=== PATIENT | male | born 1930 | race Caucasian/White ===

== ENCOUNTER 2019-11-28 13:58 | Inpatient (IN) | payer MEDICARE ==
[~2019-11-28] VITALS: Ht 182.9 cm; Wt 90.1 kg
[~2019-11-28 13:58] MED LIST: ASPI81CH PO; UBID10 PO
[2019-11-28] MEDS ORDERED: VITAMIN D31000 UNI1 PO (14:29)
[2019-11-28 14:53] LABS: BASOPHILS ABSOLUTE AUTO 0.02 K/mm3 (0.00-0.23); BASOPHILS PERCENT AUTO 0 % (0-2); EOSINOPHILS ABSOLUTE AUTO 0.01 K/mm3 (0.00-0.68); EOSINOPHILS PERCENT AUTO 0 % (0-6); Hematocrit 48.2 % (37.0-53.0); Hemoglobin 16.2 g/dL (13.5-17.5); IMMATURE GRAN ABSOLUTE AUTO 0.05 K/mm3 (0.00-0.10); IMMATURE GRAN PERCENT AUTO 1 % (0-1); LYMPHOCYTES ABSOLUTE AUTO 1.11 K/mm3 (0.84-5.20); LYMPHOCYTES PERCENT AUTO 10 % (21-46); MONOCYTES ABSOLUTE AUTO 1.03 K/mm3 (0.16-1.47); MONOCYTES PERCENT AUTO 10 % (4-13); Mean Corpuscular HGB 32.5 pg (26.0-34.0); Mean Corpuscular HGB Conc 33.6 g/dL (31.5-36.5); Mean Corpuscular Volume 97 fL (80-100); Mean Platelet Volume 10.3 fL (9.1-12.4); NEUTROPHILS ABSOLUTE AUTO 8.47 K/mm3 (1.96-9.15); NEUTROPHILS PERCENT AUTO 79 % (41-73); Platelet Count 223 K/mm3 (150-400); RDW Coefficient Variation 12.6 % (11.7-14.2); RDW Standard Deviation 45.1 fL (35.1-46.3); Red Blood Cell Count 4.98 M/mm3 (4.30-5.90); White Blood Cell Count 10.69 K/mm3 (4.00-11.30)
[2019-11-28 15:13] LABS: Alanine Aminotransfer (ALT/SGP 59 U/L (12-78); Albumin, Blood 3.1 g/dL (3.4-5.0); Albumin/Globulin Ratio 0.7 (0.8-1.8); Alk Phos 77 U/L (50-136); Anion Gap 9 mmol/L (6-16); Aspartate Aminotrans (AST/SGOT 159 U/L (12-37); Bilirubin, Total 1.4 mg/dL (0.1-1.0); Blood Urea Nitrogen 35 mg/dL (8-24); Bun/Creatinine Ratio 47.2 (12.0-20.0); CO2, Blood 23 mmol/L (21-32); Calcium, Blood 8.8 mg/dL (8.5-10.1); Chloride, Blood 110 mmol/L (98-108); Creatinine, Blood 0.74 mg/dL (0.60-1.20); Globulin, Blood 4.7 g/dL (2.2-4.0); Glomerular Filtration Rate >60 (60-); Glucose, Blood 136 mg/dL (70-99); Potassium, Blood 4.1 mmol/L (3.5-5.5); Sodium, Blood 142 mmol/L (136-145); Total Protein, Blood 7.8 g/dL (6.4-8.2); Troponin I 0.056 ng/mL (0.000-0.040)
[2019-11-28 18:04] LABS: Creatine Kinase MB 47.9 ng/mL (0.0-3.6)
[2019-11-28 18:15] LABS: Appearance, Urine Hazy (Clear); Bilirubin, Urine Neg (Neg); Blood, Urine 5+ (Neg); Color, Urine Yellow (P-Yellow); Glucose Qualitative, Urine Neg (Neg); Ketones, Urine 3+ (Neg); Leukocyte Esterase, Urine 3+ (Neg); Nitrite, Urine Pos (Neg); Protein, Urine 2+ (Neg); Specific Gravity, Urine 1.025 (1.003-1.022); Urobilinogen, Urine NORM (Normal)
[2019-11-28 18:22] LABS: Bacteria Many /hpf; Squamous Epithelial Cells Rare /hpf (Few); White Blood Cells, Urine 25-50 /hpf (0-5)
[2019-11-28 18:23] LABS: Mucus Light (0-Heavy)
[2019-11-28 18:36] LABS: Creatine Kinase MB Index 1.1 (0.0-4.0)
[2019-11-28 22:44] LABS: Troponin I 0.076 ng/mL (0.000-0.040)
[2019-11-28 23:07] LABS: Creatine Kinase MB 37.2 ng/mL (0.0-3.6); Creatine Kinase MB Index 0.9 (0.0-4.0)
--- NOTE | 2019-11-29 04:18 | NUR ---
SHIFT SUMMARY PT NEW ER ADMIT THIS SHIFT, NO ACUTE CHANGES SINCE ASSUMING CARE. PT ARRIVED PLEASANT BUT SOON BECAME UNCOOPERATIVE W/CARE. REFUSED LAB DRAW @ 2200, THIS RN EDUCATED PT ON IMPORTANCE OF LAB FOR MD, PT THEN ALLOWED LAB TO DRAW. AT 0400 PT BEGAN SCREAMING OUT "GET IN HERE NOW, I'M COLD" PT HAD VOIDED BED AND PULLED IV, REFUSED LINNEN CHANGE AND SCREAMED AT STAFF WHILE IT WAS DONE, PT ALSO REFUSED INSERTION OF NEW IV, TOLD THIS RN TO "SEND IN THE DOCTOR, I'LL TELL HIM." PT BEDRESTING NOW, CALL LIGHT IN REACH, ALARMS IN PLACE, WILL CONT TO MONITOR UNTIL REPORT GIVEN TO DAY RN.
[2019-11-29 06:30] LABS: Hematocrit 44.2 % (37.0-53.0); Hemoglobin 14.8 g/dL (13.5-17.5); Mean Corpuscular HGB 32.2 pg (26.0-34.0); Mean Corpuscular HGB Conc 33.5 g/dL (31.5-36.5); Mean Corpuscular Volume 96 fL (80-100); Platelet Count 182 K/mm3 (150-400); RDW Coefficient Variation 12.7 % (11.7-14.2); RDW Standard Deviation 45.3 fL (35.1-46.3); Red Blood Cell Count 4.59 M/mm3 (4.30-5.90); White Blood Cell Count 8.56 K/mm3 (4.00-11.30)
[2019-11-29 06:56] LABS: Alanine Aminotransfer (ALT/SGP 60 U/L (12-78); Albumin, Blood 2.7 g/dL (3.4-5.0); Albumin/Globulin Ratio 0.6 (0.8-1.8); Alk Phos 64 U/L (50-136); Anion Gap 6 mmol/L (6-16); Aspartate Aminotrans (AST/SGOT 132 U/L (12-37); Bilirubin, Total 1.1 mg/dL (0.1-1.0); Blood Urea Nitrogen 28 mg/dL (8-24); Bun/Creatinine Ratio 36.8 (12.0-20.0); CO2, Blood 26 mmol/L (21-32); Calcium, Blood 8.2 mg/dL (8.5-10.1); Chloride, Blood 108 mmol/L (98-108); Creatinine, Blood 0.76 mg/dL (0.60-1.20); Globulin, Blood 4.2 g/dL (2.2-4.0); Glomerular Filtration Rate >60 (60-); Glucose, Blood 114 mg/dL (70-99); Potassium, Blood 3.9 mmol/L (3.5-5.5); Sodium, Blood 140 mmol/L (136-145); Total Protein, Blood 6.9 g/dL (6.4-8.2); Troponin I 0.067 ng/mL (0.000-0.040)
[2019-11-29 07:10] LABS: CPK Creatine Kinase 2719 U/L (39-308)
[2019-11-29 07:23] LABS: Creatine Kinase MB 19.1 ng/mL (0.0-3.6); Creatine Kinase MB Index 0.7 (0.0-4.0)
--- NOTE | 2019-11-29 15:59 | NUR ---
SHIFT SUMMARY PT IS A/O X 2-3 WITH FORGETFULNESS AND NEEDS RE-ORIENTATION AT TIMES. . HE ASKS FREQUENTLY FOR HIS CAREGIVER CE AND SHE CAME TO VISIT HIM FOR A SHORT TIME THIS MORNING. PT IS STIFF WITH BED WITH RE-POSITIONING AND TRANSFERS. THIS NURSE ASSISTED OT THIS MORNING AND HE WAS A MAX 2 PERSON ASSIT WITH A GAIT BELT AND FWW. HE NEEDS CONSTANT CUEING DURING TRANSFERS. PT IS VERY PARTICULAR ABOUT HIS ADLS AND VOICES HIS OPINIONS LOUDLY STATING HE NORMALLY DOES THINGS ON HIS OWN AT HOME WITH A TRAPEZE ON HIS BED AND THIS IS WHAT WORKS FOR HIM. PER HIS CAREGIVER CE, HE CAN BARELY NAVIGATE THROUGH THE HOUSE WITH A FWW AND USES URINALS PLACED THROUGHOUT FOR TOILETING. SINCE ADMISSION HE HAS BEEN INC AND DID ATTEMPT TO USE A URINAL AT THE BEDSIDE TODAY BUT WAS UNSUCCESSFUL. HE HAS GENERALIZED WEAKNESS. FLUIDS ARE RUNNING ORDERED WITH NO ISSUES. CT WAS COMPLETED PER DR CHOW. MANUFACTURING EXECUTIVE REPORTS SINUS @ 92 AND PT DENIES AND SOB OR CHEST PAIN. TYLENOL WAS GIVEN THIS MORNING FOR PAIN BUT PT REPORTS THAT HIS CAREGIVER USES A "HEMP CREAM" AT HOME WHICH IS THE ONLY THING THAT REALLY WORKS FOR HIM. PT IS ABLE TO MAKE HIS NEEDS KNOWN AND CALLS FOR HELP EITHER BY CALLING OUT OR USING CALL LIGHT. HE IS RESTING IN BED NOW AND HAS HIS CALL LIGHT IN REACH.
--- NOTE | 2019-11-30 05:45 | NUR ---
HAS BEEN RESTING QUIETLY WITH FEW INTERRUPTIONS THIS SHIFT. IVF INFUSING PER MD ORDERS - AND RECEIVED PAIN MEDS PER MAR. QUITE TERSE WITH FEMALES, NOTED HIM RAISING HIS VOICE TO REEL WINDER WHEN SHE TRIED TO CLEAN HIM UP FROM HIS INCONTENENCE. SEEMED TO CHANGE HIS ATTITUDE WHEN MALE NURSE CAME IN. CALL LIGHT INREACH.
--- NOTE | 2019-11-30 13:07 | NUR ---
Met pt. in bed and his Dr. and nurse in the room talking to pt. , then I spoke to pt and encouraged him in situation ,offered prayers .
--- NOTE | 2019-11-30 19:17 | NUR ---
shift summary: NO ACUTE CHANGES TO REPORT THIS SHIFT. PT A&O; IRRITABLE; REFUSING LAB DRAWS; COOPERATIVE WITH OTHER CARE. MEDICATED FOR PAIN PER EMAR. TELE IN PLACE; SR @ 65 DURING MORNING ASSESSMENT. MRI THIS SHIFT; AWAITING RESULTS. REPORT GIVEN TO ONCOMING RN.
--- NOTE | 2019-12-01 04:14 | NUR ---
SUPERINTENDENT LOCAL SUMMARY PT A/O X3 WITH OCCASIONAL FORGETFULNESS. PT HAS BEEN IRRITATED. PT STATES PAIN IN LEGS BUT HAS BEEN IRRITATED BECAUSE HE ASKED ONE OF HIS FAMILY MEMBERS TO BRING IN HEMP OIL TO PUT ON HIS LEGS TO ALLIVIATE PAIN BUT THEY ARE UNABLE TO DO SO. PT REFUSED TO TAKE PAIN MEDICATIONS THAT ARE AVAILIBLE. PROVIDED WITH UNINTERUPTED REST. PT WAS NOT HAPPY AND HESITANT ABOUT HAVING HIS VITALS TAKEN THIS AM PER FASHION STYLIST REPORT. VSS. TWO ASSIST TO ROLL IN BED NEEDED.
--- NOTE | 2019-12-01 09:25 | NUR ---
0900 OT ATTEMPTED TO WORK WITH PATIENT. HE BECAME BELLIGERENT AND STARTED YELLING AT STAFF , REFUSING TO WORK WITH HER AND TELLING HER TO GET OUT OF HIS ROOM. PT STATED THAT WE WERE JUST TRYING TO RUN UP HIS BILL EVEN AFTER THIS NURSE AND OT ATTEMPTED TO EXPLAIN WHY HE NEEDED OT. PT IS UNABLE TO GET UP ON HIS OWN AND IS CONFUSED ON WHY HE IS HERE STATING HE CAN TAKE CARE OF HIMSELF. THIS NURSE CALLED HIS DAUGHTER AND EXPLAINED THE SITUATION. CARE GIVERS TO BE NOTIFIED WELL.
[2019-12-01] MEDS ORDERED: LEVFLO500 PO (11:00)
--- NOTE | 2019-12-01 12:51 | NUR ---
PT TO DISCHARGE HOME TO . IV REMOVED , NO SS OF INFECTION NOTED. PT DRESSED BY STAFF AND CAREGIVER. MEDS FAXED TO [facility]. PT INSTRUCTED TO FOLLOW UP WITH PCP. PT TO WHEEL DOWN BY AND STAFF TO CAR TO BE TAKEN HOME.
--- NOTE | 2019-12-01 13:06 | NUR ---
Pt. is in bed resting and doing well encouraged pt. ,offered prayers and pt. may go home today or next.
[2019-12-02] MEDS ORDERED: MAGNESIUM OXID500 MG PO (16:47)
[2019-12-02] MEDS ORDERED: UBID10 PO (16:47)
== END 2019-12-01 11:40 | disposition home health service (06) | DRG 690 ==
LOC: ER 13:58 → MEDS 19:23 → ENPENDDIS 12-01 10:00 → MEDS 12-01 11:40
PROVIDERS: Emergency Medicine; ADMIT Internal Medicine
DX: N39.0 Urinary tract infection, site not specified (principal); M62.82 Rhabdomyolysis; M54.5 Low back pain; W19.XXXA Unspecified fall, initial encounter; F03.90 Unspecified dementia, unspecified severity, without behavioral disturbance, psychotic disturbance, mood disturbance, and anxiety; M81.0 Age-related osteoporosis without current pathological fracture; Z88.0 Allergy status to penicillin
CPT/HCPCS: 36415; 70450; 71046; 72148; 80053; 81001; 82550; 82553; 83880; 84443; 84484; 85025; 85027; 87077; 87086; 87186; 93005; 93010; 93306; 96365; 96366; 97110; 97112; 97162; 97166; 99285-25; A9270; J0696; J1650; J7030

== ENCOUNTER 2019-12-02 14:54 | Observation (INO) | payer OTHER ==
[~2019-12-02 14:54] MED LIST changes: +LEVFLO500 PO; +VITAMIN D31000 UNI1 PO
[2019-12-02] MEDS ORDERED: MAGNESIUM OXID500 MG PO (16:47)
[2019-12-02] MEDS ORDERED: UBID10 PO (16:47)
--- NOTE | 2019-12-02 22:38 | NUR ---
TRANSFER REPORT FROM JOSH CARLIN WHO IS IN ER . 89 YEAR OLD MALE BEING ADMITTED OBS STATUS FOR IMPAIRED MOBILITY AND ADLS. LIVES ALONE AND REPORTED TO HAVE BEEN UNABLE TO CARE FOR SELF AT HOME WHERE HE WAS TO START HOME HEALTH PT. AWAIT ADMISSION.
--- NOTE | 2019-12-02 23:34 | NUR ---
PT who lives alone admitted with weakness and has had pain and immobility since prior fall. [facility] PT had called 911 due to concerns over living alone falls and weakness. PT in street clothes says he doesn't want to be in hospital, he is a poor historian. but appears he was dc recently from ER or medical floor after falls and has significant lt hip pain since falls. OBS status, will assess. PT ST ordered.
[2019-12-03] MEDS ORDERED: ACET325 PO (02:01)
--- NOTE | 2019-12-03 03:18 | NUR ---
CERTIFIED NUCLEAR MEDICINE TECHNOLOGIST Arlyn Tim updated on PT's co lt le pain, rx for ultram tylenol and lidoderm patch obtained. CERTIFIED NUCLEAR MEDICINE TECHNOLOGIST requests we try to get PT to agree to AM labs.
--- NOTE | 2019-12-03 05:01 | NUR ---
Discussed PT case with STAVE CUTTING SUPERVISOR Arlyn Tim. PT would not allow IV access and refused AM lab draw as per baseline. Reappraoched about AM lab and PT continued to decline. Medicated for lt LE pain or 10 with good relief with ultram 50 mg and tylenol 650 mg po. No attempts to climb out of bed unassisted. PT lives alone and unable to ambulate after discharge from hospital and had [facility] PT Paola call 911 to assist with finding placement for [place]. PT has poor memory, very poor historian. SW and pallative care consult. PT had severe lt le pain refused scds. Continue to assess and provide support. Jessica 2 ensures and yogurt fed self 100% quickly when set up.
--- NOTE | 2019-12-03 10:49 | NUR ---
PT REFUSED LAB DRAW THIS MORNING, REFUSED SCD
--- NOTE | 2019-12-03 17:15 | NUR ---
SHIFT SUMMARY- PT IS A/O, PLESANT AND COOPERATIVE. HE WORKED WITH PHYSICAL THERAPY TODAY AND TOLERATED WELL. PLAN IS TO DISCHARGE TO SNF. HE IS EATING AND DRINKING WELL. HE USES THE URINAL AT BEDSIDE.
--- NOTE | 2019-12-04 04:33 | NUR ---
SHIFT SUMMARY PT PLEASANT AND COOPERATIVE. REMAINED IN BED THROUGHOUT THE NIGHT. USING THE URINAL INDEPENDENTLY. PT RECIEVED PARTIAL BED BATH THIS EVENING AND FLOAT DRIER TENDER NAPHTHALENE SHAVED PT'S FACE PER PT REQUEST. PT DID REPORT PAIN IN LEFT GROIN/LEG THAT RADIATED DOWN LEG. THIS PAIN IS NOT NEW, PT REPORTS THAT HE HAS BEEN EXPERIENCING THIS SINCE A FALL THAT HE HAD A HOME A WHILE BACK. MEDICATED X 1 W/ 650 MG TYLENOL. OTHERWISE PT HAD NO COMPLAINTS. VITAL SIGNS WERE STABLE. NO ACUTE CHANGES THIS SHIFT. WILL CONTINUE TO MONITOR AND REPORT TO DAY RN.
--- NOTE | 2019-12-04 17:51 | NUR ---
SHIFT SUMMARY- PT IS A/O, PLESANT AND COOPERATIVE. PT IS AWAITING PLACMENT TO SNF. PT IS USING URINAL AT BEDSIDE. PT SHOWERED THIS MORNING. HE WAS UP IN THE CHAIR MOST OF TODAY. HE IS EATING AND DRINKING WELL.
--- NOTE | 2019-12-05 04:48 | NUR ---
SHIFT SUMMARY NO ACUTE CHANGES THIS SHIFT. PT MEDICATED X 1 WITH TYLENOL 650 MG AND X 1 W/ ULTRAM 50 MG X 1 FOR CHRONIC PAIN. PT REPORTS PAIN TO BE IN LEFT GROIN RADIATING DOWN HIS LEFT LEG. PAIN IS FROM RECENT FALL AT HOME. OTHERWISE PT SLEPT OFF AN ON THROUGHOUT THE NIGHT. USED THE URINAL INDEPENDENTLY IN THE BED. CALLED APPROPRIATELY FOR ASSISTANCE. AWAITING MD AUTHORIZATION FOR SNF PLACEMENT. VITAL SIGNS STABLE. WILL CONTINUE TO MONITOR.
--- NOTE | 2019-12-05 16:24 | NUR ---
ALERT. ORIENTED. HX DEMENTIA. AT TIMES IRRITABLE, BUT GENERALLY COOPERATIVE AND PLEASANT. VERY [place]. WAITING FOR [facility]. POSSIBLE D'C WITHIN NEXT 2 DAYS. MEDICATED FOR PAIN W/TYLENOL WITH GOOD RESULTS. ONE PERSON ASSIST. UNLABORED RESPIRATIONS. BED IN LOW POSITION. TM.
--- NOTE | 2019-12-06 06:34 | NUR ---
SHIFT SUMMARY PATIENT SLEPT WELL ONCE HE GOT TO SLEEP. HE IS VERY HARD OF HEARING AND REQUIRED CARE STAFF TO TALK LOUDLY TO HAVE HIM UNDERSTAND WHAT THEY WERE SAYING. PATIENT DOES NOT HAVE AN IV IN PLACE. STILL AWAITING [facility] PLACEMENT. BED IN LOWEST POSITION WITH WHEELS LOCKED. CALL LIGHT WITHIN REACH. REPORT GIVEN TO ONCOMING RN.
[2019-12-06] MEDS ORDERED: LEVFLO500 PO (09:45)
--- NOTE | 2019-12-06 10:55 | NUR ---
REPORT TO STONEY MORENO AT [facility] ANSWER ALL QUESTIONS. PATIENT IN STREET CLOTHES IN CHAIR AWAITING RIDE
--- NOTE | 2019-12-06 15:50 | NUR ---
IN W/C TO [facility]. ATTEMPT TO GIVE REPORT TO [facility] , BUT UNABLE TO. ADVISED THEM TO CALL HERE IF THEY WANT REPORT.
--- NOTE | 2019-12-06 16:33 | NUR ---
REPORT TO GREGORY MORENO AT [facility]
== END 2019-12-06 15:49 ==
LOC: ER 14:54 → MEDS 14:55 → ENPENDDIS 12-06 09:47 → MEDS 12-06 15:49
PROVIDERS: ADMIT Internal Medicine
DX: R53.1 Weakness (principal); N39.0 Urinary tract infection, site not specified; K59.00 Constipation, unspecified; T79.6XXA Traumatic ischemia of muscle, initial encounter; R79.89 Other specified abnormal findings of blood chemistry; M51.36 Other intervertebral disc degeneration, lumbar region; M48.061 Spinal stenosis, lumbar region without neurogenic claudication; F03.90 Unspecified dementia, unspecified severity, without behavioral disturbance, psychotic disturbance, mood disturbance, and anxiety; M19.90 Unspecified osteoarthritis, unspecified site; M81.0 Age-related osteoporosis without current pathological fracture; Z74.09 Other reduced mobility; Z79.899 Other long term (current) drug therapy; Z91.19 Patient's noncompliance with other medical treatment and regimen; Z88.0 Allergy status to penicillin
CPT/HCPCS: 92610; 97110; 97162; 97166; 99285; A9270; G0378

== ENCOUNTER 2020-11-26 22:37 | Inpatient (IN) | payer OTHER, MEDICARE ==
[~2020-11-26] VITALS: Ht 182.9 cm; Wt 93.5 kg
[~2020-11-26 22:37] MED LIST changes: +ACET325 PO; +MAGNESIUM OXID500 MG PO
[2020-11-26 22:55] LABS: BASOPHILS ABSOLUTE AUTO 0.13 K/mm3 (0.00-0.23); BASOPHILS PERCENT AUTO 1 % (0-2); EOSINOPHILS PERCENT AUTO 0 % (0-6); Hematocrit 54.3 % (37.0-53.0); Hemoglobin 18.2 g/dL (13.5-17.5); IMMATURE GRAN ABSOLUTE AUTO 1.17 K/mm3 (0.00-0.10); IMMATURE GRAN PERCENT AUTO 5 % (0-1); LYMPHOCYTES ABSOLUTE AUTO 0.76 K/mm3 (0.84-5.20); LYMPHOCYTES PERCENT AUTO 3 % (21-46); MONOCYTES ABSOLUTE AUTO 1.41 K/mm3 (0.16-1.47); MONOCYTES PERCENT AUTO 6 % (4-13); Mean Corpuscular HGB 31.4 pg (26.0-34.0); Mean Corpuscular HGB Conc 33.5 g/dL (31.5-36.5); Mean Corpuscular Volume 94 fL (80-100); Mean Platelet Volume 11.1 fL (9.1-12.4); NEUTROPHILS ABSOLUTE AUTO 22.12 K/mm3 (1.96-9.15); NEUTROPHILS PERCENT AUTO 86 % (41-73); Platelet Count 148 K/mm3 (150-400); RDW Coefficient Variation 13.4 % (11.7-14.2); RDW Standard Deviation 46.5 fL (35.1-46.3); White Blood Cell Count 25.59 K/mm3 (4.00-11.30)
[2020-11-26 23:13] LABS: BAND PERCENT MAN 26 % (0-8); BASOPHILS PERCENT MAN 0 % (0-2); EOSINOPHILS PERCENT MAN 0 % (0-6); LYMPHOCYTES ABSOLUTE MAN 1.53 K/mm3 (0.84-5.20); LYMPHOCYTES PERCENT MAN 6 % (21-46); METAMYELOCYTE ABSOLUTE MAN 0.76 K/mm3 (0.00-0.00); METAMYELOCYTE PERCENT MAN 3 % (0-0); MONOCYTES ABSOLUTE MAN 2.04 K/mm3 (0.16-1.47); MONOCYTES PERCENT MAN 8 % (4-13); NEUTROPHILS ABSOLUTE MAN 21.23 K/mm3 (1.96-9.15); SEG NEUTROPHILS PERCENT MAN 57 % (41-73); TOTAL CELLS COUNTED 100
[2020-11-26 23:39] LABS: Albumin, Blood 3.4 g/dL (3.4-5.0); Albumin/Globulin Ratio 0.7 (0.8-1.8); Bilirubin, Total 1.3 mg/dL (0.1-1.0); Bun/Creatinine Ratio 26.1 (12.0-20.0); Calcium, Blood 8.7 mg/dL (8.5-10.1); Creatinine, Blood 2.38 mg/dL (0.60-1.20); Globulin, Blood 5.2 g/dL (2.2-4.0); Potassium, Blood 4.9 mmol/L (3.5-5.5); Total Protein, Blood 8.6 g/dL (6.4-8.2); Troponin I 0.308 ng/mL (0.000-0.040)
[2020-11-27 00:01] LABS: Creatine Kinase MB 91.2 ng/mL (0.0-3.6); Creatine Kinase MB Index 0.9 (0.0-4.0)
[2020-11-27 00:49] LABS: Source, Urine Catheter
[2020-11-27 00:52] LABS: Appearance, Urine Cloudy (Clear); Blood, Urine 5+ (Neg); Color, Urine Amber (P-Yellow); Glucose Qualitative, Urine Neg (Neg); Ketones, Urine 1+ (Neg); Leukocyte Esterase, Urine 3+ (Neg); Nitrite, Urine Pos (Neg); Protein, Urine 3+ (Neg); Specific Gravity, Urine 1.025 (1.003-1.022); Urobilinogen, Urine 2+ (Normal)
[2020-11-27 00:57] LABS: Bilirubin, Urine 2+ (Neg)
[2020-11-27 00:58] LABS: Bacteria Many /hpf; Squamous Epithelial Cells Few /hpf (Few); White Blood Cells, Urine 50-100 /hpf (0-5)
[2020-11-27 03:27] LABS: BASOPHILS PERCENT AUTO 0 % (0-2); Hematocrit 45.6 % (37.0-53.0); Hemoglobin 14.9 g/dL (13.5-17.5); LYMPHOCYTES ABSOLUTE AUTO 1.07 K/mm3 (0.84-5.20); LYMPHOCYTES PERCENT AUTO 5 % (21-46); MONOCYTES ABSOLUTE AUTO 2.33 K/mm3 (0.16-1.47); MONOCYTES PERCENT AUTO 10 % (4-13); Mean Corpuscular HGB 30.8 pg (26.0-34.0); Mean Corpuscular HGB Conc 32.7 g/dL (31.5-36.5); Mean Corpuscular Volume 94 fL (80-100); Mean Platelet Volume 10.6 fL (9.1-12.4); Platelet Count 109 K/mm3 (150-400); RDW Coefficient Variation 13.2 % (11.7-14.2); RDW Standard Deviation 46.2 fL (35.1-46.3); Red Blood Cell Count 4.83 M/mm3 (4.30-5.90); White Blood Cell Count 23.67 K/mm3 (4.00-11.30)
[2020-11-27 03:29] LABS: EOSINOPHILS PERCENT AUTO 0 % (0-6); IMMATURE GRAN ABSOLUTE AUTO 0.54 K/mm3 (0.00-0.10); IMMATURE GRAN PERCENT AUTO 2 % (0-1); NEUTROPHILS ABSOLUTE AUTO 19.63 K/mm3 (1.96-9.15); NEUTROPHILS PERCENT AUTO 83 % (41-73)
[2020-11-27 04:36] LABS: Alanine Aminotransfer (ALT/SGP 92 U/L (12-78); Albumin, Blood 2.7 g/dL (3.4-5.0); Albumin/Globulin Ratio 0.6 (0.8-1.8); Alk Phos 81 U/L (50-136); Anion Gap 9 mmol/L (6-16); Aspartate Aminotrans (AST/SGOT 311 U/L (12-37); Bilirubin, Total 1.1 mg/dL (0.1-1.0); Blood Urea Nitrogen 64 mg/dL (8-24); Bun/Creatinine Ratio 30.9 (12.0-20.0); CO2, Blood 22 mmol/L (21-32); Calcium, Blood 7.5 mg/dL (8.5-10.1); Chloride, Blood 113 mmol/L (98-108); Creatinine, Blood 2.07 mg/dL (0.60-1.20); Globulin, Blood 4.3 g/dL (2.2-4.0); Glomerular Filtration Rate 32 (60-); Glucose, Blood 117 mg/dL (70-99); Phosphorus, Blood 3.9 mg/dL (2.5-4.9); Potassium, Blood 4.6 mmol/L (3.5-5.5); Sodium, Blood 144 mmol/L (136-145); Troponin I 0.243 ng/mL (0.000-0.040)
[2020-11-27 04:47] LABS: CPK Creatine Kinase 9534 U/L (39-308)
[2020-11-27 06:00] LABS: Influenza A, PCR NEGATIVE (NEGATIVE); Influenza B, PCR NEGATIVE (NEGATIVE); Resp Syncytial Virus, PCR NEGATIVE (NEGATIVE)
[2020-11-27 06:01] LABS: SARS-Cov-2 (COVID-19) PCR, MMC POSITIVE (NEGATIVE)
--- NOTE | 2020-11-27 07:42 | NUR ---
PATIENT ARRIVED TO ICU 9 AT 0645 FROM ED WITH DX OF RHABDOMYOLYSIS FROM BEING DOWN IN THE BATHROOM FOR 3 DAYS. PATIENT TRANSFER TO BED USING A SLIDER SHEET, PATIENT PAINFUL WITH MOVEMENT MULTIPLE SKIN TEAR AND WOUNDS. PATIENT VERBALIZED NEED TO HAVE BM PLACED ON BED HULL. REPORT GIVEN TO HAYDE MORENO AT BEDSIDE. PATIENT PLACED IN COVID ISOLATION.
--- NOTE | 2020-11-27 07:45 | NUR ---
ASSUMED CARE BEDSIDE REPORT RECIEVED. PT IS LAYING IN BED AWAKE, ALERT AND ORIENTED TO SELF. PT IS CONFUSED AND EASILY IRRITATED WITH QUESTIONS OR CARE ACTIVITIES. PT IS ABLE TO FOLLOW SIMPLE COMMANDS AT TIMES. VITAL SIGNS STABLE. PT ON 2L O2 NC. PT WITH MULTIPLE WOUNDS THROUGHOUT R/T RECENT FALL. SEE PHOTOS IN CHART FOR MORE WOUND INFO. NS INFUSING AT 100 ML/HR. SEWELL IN PLACE WITH DARK YELLOW/BABITA URINE OUTPUT NOTED. WILL CONTINUE TO MONITOR.
[2020-11-27] MEDS ORDERED: LEVSOD25 PO (08:40)
--- NOTE | 2020-11-27 11:10 | NUR ---
Spiritual care note: Asked to reach out to family for POC. All contact information on previous admissions are inaccurate. Grand-drt contacted. She tells me all family lives in [facility]. She gave me pt's son's contact # [phone], Carmelo Ventura. Grand-dtr states that she visited pt this past Summer. Pt does not have a care-child caregiver private home, but "There's some girl that comes in a couple times a month." Per previous admissions, Pt has declined PT, Cardiology, renal consults and has consistently just wanted to go home. Last hospitalization, he left AMA. Advised not to visit by RN as pt is "being nasty" and appears confused. I will remain available.
--- NOTE | 2020-11-27 12:39 | NUR ---
REFUSING CARE ATTEMPTED TO DRAW LABS MULTIPLE TIMES. PT IS REFUSING LABS, VITALS AND ALL OTHER NURSING CARE. PT IS AGITATED, LAYING IN BED. DR ENNIS NOTIFIED. OK TO CANCEL ALL LABS REMAINING TODAY. WILL CONTINUE TO MONITOR.
--- NOTE | 2020-11-27 16:47 | NUR ---
SHIFT SUMMARY NO ACUTE CHANGES THIS SHIFT. PT HAS SLEPT OFF AND ON THROUGHOUT THE SHIFT. WHEN AWAKE PT IS ALERT AND ORIENTED TO SELF AND FOLLOWING SIMPLE DIRECTIONS. PT IS IRRITABLE AND AGITATED. PT REMAINS CONFUSED WITH PERIODS OF NONSENSICAL SPEECH. PT DENIES PAIN. VITAL SIGNS STABLE. WOUNDS REMAIN UNCHANGED. NS INFUSING AT 100 ML/HR. SEWELL REMAINS IN PLACE WITH DARK YELLOW/TEA COLORED URINE OUTPUT NOTED. MULTIPLE FAMILY MEMBERS CONTACTED BY THIS RN AND PALLIATIVE CARE TO DETERMINE PERSON WHO WOULD BE DECISION MAKER FOR THE PT SHOULD HE DECLINE. SIGNED POLST FORM LOCATED, PT MADE DNR STATUS BAISED ON POLST. NO FAMILY AT BEDSIDE. WILL CONTINUE TO MONITOR AND REPORT OFF TO ONCOMING RN.
--- NOTE | 2020-11-28 06:30 | NUR ---
SHIFT SUMMARY PT RESTED WELL THROUGH NIGHT. ALERT AND ORIENTED, BUT AGITATED - ABLE TO MAKE NEEDS KNOWN. PT NONCOMPLIANT AND NOT VERY KIND. RN ASSISTED TO CLEAN PT BLOOD OFF, BUT PT YELLING AT RN TO LEAVE PT ALONE. SATS >90% ON ROOM AIR. TELE RUNNING NSR. SEWELL - DRAIING TO GRAVITY AND SALVADOR CARE PERFORMED BEST PT ALLOWED. R ARM SWELLING - CHEL WRAP IN PLACE TO ASSIST WITH SWELLING. PT REFUSING TURNS OR ANY SKIN CARE/LABS/IMAGING. VSS. CALL LIGHT WITHIN REACH, BED IN LOWEST POSITION. WILL CONTINUE TO MONITOR.
--- NOTE | 2020-11-28 08:43 | NUR ---
Review of patient with nursing. Will follow up with pediatric critical care nurse.
[2020-11-28 10:46] LABS: Hematocrit 46.1 % (37.0-53.0); Hemoglobin 15.4 g/dL (13.5-17.5); Mean Corpuscular HGB 31.7 pg (26.0-34.0); Mean Corpuscular HGB Conc 33.4 g/dL (31.5-36.5); Mean Corpuscular Volume 95 fL (80-100); Mean Platelet Volume 11.5 fL (9.1-12.4); RDW Coefficient Variation 13.3 % (11.7-14.2); RDW Standard Deviation 46.8 fL (35.1-46.3); Red Blood Cell Count 4.86 M/mm3 (4.30-5.90); White Blood Cell Count 12.31 K/mm3 (4.00-11.30)
[2020-11-28 11:22] LABS: Anion Gap 7 mmol/L (6-16); Blood Urea Nitrogen 33 mg/dL (8-24); Bun/Creatinine Ratio 42.6 (12.0-20.0); CO2, Blood 21 mmol/L (21-32); Calcium, Blood 7.6 mg/dL (8.5-10.1); Chloride, Blood 116 mmol/L (98-108); Creatinine, Blood 0.77 mg/dL (0.60-1.20); Glomerular Filtration Rate >60 (60-); Glucose, Blood 143 mg/dL (70-99); Sodium, Blood 144 mmol/L (136-145)
[2020-11-28 11:24] LABS: CPK Creatine Kinase 6014 U/L (39-308)
--- NOTE | 2020-11-28 11:46 | NUR ---
PT RESTING IN BED, IRRITABLE AT TIMES AND REFUSES ASPECTS OF CARE. INITIALLY PT WAS REFUSING LAB WORK AND XRAY, AFTER EDUCATING PT ON PURPOSE, PT BECAME AGREEABLE. THIS MORNING PT HAS HAD MULTIPLE BOWEL MOVEMENTS, PROGRESSING TO DIARRHEA. DR ENNIS NOTIFIED AND RECTAL TUBE WAS PLACED. PT REMAINS ON ROOM AIR. MONTIOR SHOWS PT TO BE IN SINUS TACH WITH FREQUENT PAC'S. PT HAS MULTIPLE WOUNDS, MOST COVERED WITH MEPELEX DRESSINGS AND ARE C/D/I, THE OTHERS ARE OPEN TO AIR.
[2020-11-28 11:56] LABS: BAND PERCENT MAN 8 % (0-8); BASOPHILS PERCENT MAN 0 % (0-2); EOSINOPHILS ABSOLUTE MAN 0.12 K/mm3 (0.00-0.68); EOSINOPHILS PERCENT MAN 1 % (0-6); LYMPHOCYTES ABSOLUTE MAN 0.36 K/mm3 (0.84-5.20); LYMPHOCYTES PERCENT MAN 3 % (21-46); MONOCYTES ABSOLUTE MAN 0.24 K/mm3 (0.16-1.47); MONOCYTES PERCENT MAN 2 % (4-13); NEUTROPHILS ABSOLUTE MAN 11.57 K/mm3 (1.96-9.15); SEG NEUTROPHILS PERCENT MAN 86 % (41-73); TOTAL CELLS COUNTED 100
[2020-11-28 12:17] LABS: Platelet Count 89 K/mm3 (150-400)
--- NOTE | 2020-11-28 19:00 | NUR ---
REPORT FROM DAY SHIFT RN, WAS TO MARILEE IV - NORMAL SALINE IV BAG COMPLETE - FLUSHED IV AND SL'D. PT HAD A VERY LARGE LOOSE YELLOW STOOL, SENT FOR CDIFF, PARTIAL BED BATH AND LINEN CHANGE DONE. PT REPOSITIONED IN BED. PT IS IRRITABLE, AND DEMANDING WITH HIS REQUESTS - REQUESTING WATER, PROVIDED. FLUIDS AT BEDSIDE. BED IN LOW POSITION. CALL LIGHT WITHIN REACH.
--- NOTE | 2020-11-28 19:00 | NUR ---
REPORT FROM DAY SHIFT RN, WAS TO SL LOCK IV - NORMAL SALINE IV BAG COMPLETE - FLUSHED IV AND SL'D. PT HAS A VERY LARGE LOOSE YELLOW STOOL, PARTIAL BED BATH AND LINEN CHANGE DONE. PT IRRITABLE, AND DEMANDING WITH HIS REQUESTS - REQUESTING WATER - PROVIDED. PT REPOSITIONED ON HIS LEFT SIDE. FLUIDS AT BEDSIDE. BED IN LOW POSITION. CALL LIGHT WITHIN REACH.
[2020-11-28 21:13] LABS: C DIFFICILE DNA NEGATIVE (Negative)
--- NOTE | 2020-11-29 00:22 | NUR ---
PT REFUSED HIS IV ANTIBIOTIC - SEE EMAR. PT STATES "LEAVE ME ALONE", "LET ME SLEEP." EDUCATED ON IMPORTANCE OF IV ANTIBIOTIC, PT REPORTS "I DON'T CARE." REVIEWED WITH DONALD MAIN ON THE ABOVE. SHE REPORTED THIS ISN'T NEW BEHAVIOR FOR THIS PATIENT.
--- NOTE | 2020-11-29 02:00 | NUR ---
REPOSITIONED PATIENT - PT VERY ANGRY THAT I DISTURBED HIM - SCREAMED "LEAVE ME ALONE." "LET ME SLEEP."
--- NOTE | 2020-11-29 05:09 | NUR ---
PT REFUSED LAB DRAW THIS AM. BORE MILL OPERATOR FOR PLASTIC REPORTS HE WILL COME BACK AROUND 8:00 AM TO ATTEMPT A LAB DRAW. PT DID ALLOW VITAL SIGNS - THEN ASKED WHAT HIS BP RESULT WAS. PT CONTINUES TO BE IRRITABLE. CALL LIGHT WITHIN REACH. BED IN LOW POSITION. FLUIDS AT BEDSIDE.
--- NOTE | 2020-11-29 06:05 | NUR ---
SHIFT SUMMARY - NO ACUTE CHANGES THROUGHOUT THE NIGHT. PT HAS REMAINED A&O THROUGHOUT THE NIGHT. PT HAS BEEN IRRITABLE AND HAS REFUSED CARE SEVERAL TIMES TONIGHT. PT'S VS ARE STABLE, SATS WNL ON RA. RESPIRATIONS EVEN AND UNLABORED. FLUIDS AT BEDSIDE. CALL LIGHT WITHIN REACH. BED IN LOW POSITION.
--- NOTE | 2020-11-29 08:46 | NUR ---
ASSUMED CARE AT 0700, REPORT RECIEVED FROM GRETTA MORENO. PT VERY ANGRY AND UNCOOPERATIVE. DID GET HIM TO EAT HIS FRUIT AND YOGURT, DRANK HIS ENSURE AND MILK. REFUSED TO LET ME HHOK UP HIS ANTIBIOTICS. PT STATES HE WILL BE 6FT UNDER IN 3 DAYS ANYWAY SO HE WONT TAKE THE ANTIBIOTICS. DID ALLOW ME TO GIVE HIM HIS PILLS. HE STATES THAT HE WISHED HE COULD SEE HIS FAMILY AND I SUGGEASTED GETTING THEM TO COME AND SEE HIM THROUGH HIS WINDOW. 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 THEN PT SIAD HE WANTED ME TO STOP TALKING AND TO "GET THE HELL OUT OF MY ROOM AND TURN OFF THE DAMN LIGHT"
--- NOTE | 2020-11-29 11:54 | NUR ---
PT STILL REFUSING CARE. DID ASK FOR THE BEDPAN AND ASSISTED HIM WITH THAT AND CLEANED HIM UP. TOLD HIM IT WAS TIME FOR LUNCH AND HE STATED HE DID NOT WANT ANYTHING AND TO GET OUT OF HIS ROOM NOW.
--- NOTE | 2020-11-29 17:59 | NUR ---
SHIFT SUMMARY- PT CONTINUES TO REFUSE IV MEDICATIONS, CONTINUES TO STATE HE WILL BE IN 3 DAYS ANYWAY SO "JUST LEAVE ME ALONE". PT DID TAKE HIS ORAL MEDICATIONS THIS MORNING, BUT ABSOLUTLY REFUSES ANY IV MEDICATIONS. RECTAL TUBE PLACED DUE TO CONTINUOUS LIQUID STOOL, HE DOES NOT TURN WELL AND IS PAINFUL. STATES HE IS PAINFUL ALL OVER BUT HE REFUSES ANY PAIN MEDICATION INCLUDING TYLENOL. VERY GRUFF AND ANGRY WHEN WE TRY TO REPOSIOTION, CLEAN OR HELP HIM EAT. HE WILL ONLY EAT THE FRUIT FROM HIS TRAY, DRINK THE ENSURE AND JUICE. PT WANTS YOU TO FEED HIM, BUT IF YOU LEAVE IT NEXT TO HIM AND LEAVE THE ROOM HE IS CAPABLE OF FEEDING HIMSELF.
--- NOTE | 2020-11-29 19:30 | NUR ---
ASSUMED CARE AT 1900 PT LAYING IN BED AND ALERT/ORIENTED, CAN MAKE HIS NEEDS KNOWN. PT IS [place] WHICH CAN MAKE HIM MORE AGITATED THAT HE CANNOT UNDERSTAND WHAT IS BEING ASKED OF HIM. PT IS VERY LOUD AND DEMANDING WITHHIS NEEDS AND DIFFICULT TO ASSESS, NOT ALLOWING PERSONAL CARE, REFUSING MEDICATIONS, AND NOT ALLOWING LT AC IV TO BE FLUSHED. PT MAKING COMMENTS LIKE "I'M JUST GOING TO ANYWAY". SPO2 >90% ON RA. HR 76. BP STABLE. AFIBRILE. PT COMPLAINS OF OVERALL ACHES AND PAINS BUT REFUSES TO TAKE TYLENOL WHEN OFFERED. RECTAL TUBE AND SEWELL IN PLACE. SEE SHIFT ASSESSMENT FOR FULL ASSESSMENT.
--- NOTE | 2020-11-30 06:25 | NUR ---
END OF SHIFT ASSESSMENT PT ALERT AND ORIENTED AND ABLE TO MAKE NEEDS KNOWN. NO ACUTE EVENTS LAST NIGHT. PT REFUSES MOST CARE AND REPOSITIONINGS BY YELLING AND CURSING AT STAFF. PT SLEPT ON AND OFF ALL NIGHT AND DID DISCUSS HIS FAMILY WITH RN ONCE WHILE ALLOWING ANTIBIOTIC TO BE INFUSING. SPO2 >90% ON RA. VSS. RECTAL TUBE AND SEWELL IN PLACE AND DRAINING TO GRAVITY. PT COMPLAINTS OF BEING SORE AND STIFF FROM HIS FALL BUT REFUSES TO TAKE ANY TYLENOL THAT IS OFFERED TO HIM. RT ARM WRAPPED IN CHEL BANDAGE. WILL REPORT TO AM RN WHEN AVAILABLE.
--- NOTE | 2020-11-30 07:16 | NUR ---
ASSUMED CARE: PT RESTING IN BED. ON ROOM AIR AT THIS TIME. APPEARS TO BE IN NO ACUTE DISTRESS
--- NOTE | 2020-11-30 08:10 | NUR ---
UPON ENTRANCE IN ROOM, PT IS AWAKE, TALKING TO STAFF, MAKING NEEDS KNOWN. REFUSES MOST CARE. REFUSED VITALS BUT ALLOWED LIMITED ASSESSMENT, DECLINED REPOSITIONING OR ANY OF HIS MEDICATIONS THIS AM. ONLY WANTED ENSURE AND MILK OFF OF BREAKFAST TRAY.
--- NOTE | 2020-11-30 08:16 | NUR ---
PT REFUSED IV FLUSH
--- NOTE | 2020-11-30 09:27 | NUR ---
REPORT RECIEVED FROM JOSH BRANCH
--- NOTE | 2020-11-30 10:02 | NUR ---
REPORT GIVEN TO JOSH OLIVEIRA. PT TRANSFERRED TO ROOM 314-1 VIA BED. FRIEND CALLED AND GIVEN UPDATE THIS AM. NO ACUTE NEEDS OR CONCERNS. PT TRANSFERRED ON RA
--- NOTE | 2020-11-30 15:28 | NUR ---
SPOKE WITH LAMBERTO GIRON, REGARDING PATIENT'S STATUS: RESISTIVE TO CARE, REFUSING CARE OFTEN, REQUESTS TO BE LEFT ALONE, AND OVERALL APPARENT FAILURE TO THRIVE. EDUCATED PATIENT THAT IF HE REFUSES TREATMENTS HE WILL LIKELY GET WORSE, PT STATES "I DON'T CARE". DR CORREA ALSO NOTIFED.
--- NOTE | 2020-12-01 04:37 | NUR ---
SHIFT SUMMARY ASSUMED CARE OF PT AT 1900. PT IS A/OX4. PT REFUSED SOME CARE THIS PM, SUCH HIS LOVENOX SHOT. PT ALSO TRIED TO REFUSE TO BE CHANGED BUT WITH SOME COAXING, PT AGREED. PT IS VERY INUPIAT. PT WAS ON RA AT START OF SHIFT BUT SATURATION WAS AT 85-89%, 1L NC WAS ADMINISTERED AND SATURATIONS HAVE BEEN ABOVE 90%, LUNG SOUNDS HAVE CRACKLES AT THE BASES. HEART SOUNDS REGULAR. PT HAS CATHETER, DRAINING CLEAR YELLOW URINE. PT HAS RECTAL TUBE, DRAINING BROWISH/YELLOWISH STOOL. PT HAS VARIESCUTS, BRUISES AND SORES ON HIS R SIDE. PT REFUSED TO HAVE DRESSING ON ABD CHANGED BEUCASE IT PULLED ON HIS CHEST HAIR. PT C/O PAIN ONCE, MEDICATED PER EMAR. CALL LIGHT IN REACH, BED IN LOWEST POSTION.
--- NOTE | 2020-12-01 17:53 | NUR ---
SHIFT SUMMARY PATIENT ALERT X2-3 THIS SHIFT. PATIENT ALTERNATES COOPERATING WITH CARE AND REFUSING CARE. PATIENT REFUSED ORAL MEDICATIONS AND LOVENOX THIS SHIFT. PATIENT COOPERATIVE WITH WOUND DRESSING CHANGES THIS AFTERNOON. PATIENT STATES PAIN AT AN ACCEPTABLE LEVEL THIS SHIFT. PATIENT CURRENTLY UP IN BED EATING DINNER.
--- NOTE | 2020-12-02 05:19 | NUR ---
SHIFT SUMMARY ASSUMED CARE OF PT AT 1900. PT IS A/OX3. HEART SOUNDS REGULAR, LUNG SOUNDS HAVE CRACKLES AT THE BASES, PT IS NOW ON 3L NC, CONTINUOUS PULSE OX IN PLACE, PT SATURATIONS ARE BETWEEN 90-93%. PT DESATURATIONS TALKING OR YELLING. PT HAS RECTAL TUBE, DRAINING BROWN LIQUID STOOL. CATHETER DRAINING CLEAR YELLOW URINE WITH GRAVITY. PT HAS VARIES WOUNDS ON BODY, SEE CHART. PT STATES HE IS PAINFUL UPON EACH ENOUNTER BUT DOES NOT WANT IV PAIN MEDICATION. ORAL MEDICATIONS PERSCRIBED BY HOSPITALIST. THIS NURSE THINKS IT IS BECAUSE THE CLINICAL BUSINESS MANAGER LOOKS LIKE A NEEDLE AND HE DOESNT LIKE TO BE POKED. PT WILL REFUSE CARE DUE TO PAIN. PT WISHED TO BE LEFT ALONE TO REST DURING THE NIGHT. CALL LIGHT IN REACH, BED IN LOWEST POSTION.
--- NOTE | 2020-12-02 06:50 | NUR ---
CHANGE IN CONDITION AT 0640, PT SATURATIONS SHOWS 86%. UPON ASSESSMENT, PT RESPIRATIONS WERE ELEVATED AND PT IS SWEATY. WHEN PT WAS TOUCHED, HE YELLED OUT "PLEASE GOD, JUST TAKE ME. THE PAIN IS TOO MUCH". PT OXYGEN WAS INCREASED TO 4L NC. SATURATIONS AT 90%
--- NOTE | 2020-12-02 16:59 | NUR ---
SHIFT SUMMARY PATIENT ALERT, ORIENTED X3 THIS SHIFT. PATIENT MORE COOPERATIVE WITH CARE THIS AFTERNOON. PATIENT TOOK MORNING MEDICATIONS AND ALLOWED DRESSING CHANGES THIS SHIFT. PATIENT REMAINS IN BED THROUGHOUT THIS SHIFT. SEWELL AND RECTAL TUBE CONTINUE DRAINING. PATIENT SITTING UP IN BED, NO ADDITIONAL NEEDS AT THIS TIME.
--- NOTE | 2020-12-03 03:57 | NUR ---
SHIFT SUMMARY ASSUMED CARE OF PT AT 1900. PT IS A/OX3. HEART SOUNDS REGULAR, LUNG SOUNDS ARE COURSE, PT REFUSES TO USE OXYGEN, PT SATURATIONS ARE BETWEEN 88-90. PT REFUSES IV PAIN MEDICATION. PT ALSO REFUSED TO BE CHANGED DURING THE NIGHT. PT HAS RECTAL TUBE, THERE IS LITTLE DRAINAGE. PT HAS CATHETER DRAINING YELLOW URINE. PT DRESSINGS ARE C/D/I. CALL LIGHT IN REACH, BED IN LOWEST POSTION.
--- NOTE | 2020-12-03 12:23 | NUR ---
Slow conversation with pt. He is very hard of hearing. He getss aggitated easily. Advied him to stop yelling at the young nurses and staff and watch his swearing. we reviewed the past few months and he became tearfull. He lost his drivers lisence due to his declining function. He has had unreliable caregivers at home. He thinks they stole some of his walker and his purple heart. He is grieving his loss of function. He wants to go home with caregivers. He does not want to go to assited living. He is a combat wounded and feels he should have a choice. Spent some time soothing him and acknowledging his grief and stress. When trying to talk to him about his care he starts repeating himself and tries to change the subject. Some difficulty tracking conversation. Will see if he qualifies for hospice. Review of his needs with nursing care partner. [facility] can get him caregivers.
--- NOTE | 2020-12-03 14:06 | NUR ---
REFUSES DRESSING CHANGES. "WERE CHNAGED YESTERDAY. IT CAN WAIT TILL TOMORROW." REFUSES TO HAVE RECTAL TUBE DEFLATED AND MOVED THEN REINFLATED. HEARD TALKING ON PHONE AND IS SAYING WANTS TO GO HOME.
--- NOTE | 2020-12-03 16:12 | NUR ---
PATIENT ALLOWED RN TO DEFLATE RECTAL TUBE AND ADJUST, THEN REINFLATE TUBE. YELLED WHEN PROCEDURE WAS BEING DONE.ADVISED PROCEDURE HAS TO BE DONE EVERY SHIFT. STS "OK"
--- NOTE | 2020-12-03 16:17 | NUR ---
AT TIMES ALERT ORIENTED X 3. REFUSES CARE OFTEN. SEE PREVIOUS NOTES. DID FINALLY ALLOW THIS RN TO ADJUST RECTAL TUBE. UNABLE TO CHANGE ARM DRESSINGS THIS SHIFT. PER PALLIATIVE CARE TRYING TO GET PATIENT INTO [facility] FOR FURTHER TREATMENT. REFUSED TO GET UP TODAY EVEN WITH P.T. IV PATENT. ON 3 LPM OXYGEN AND SEEMS TO HAVE NOT TRIED TO TAKE OFF THIS SHIFT. [facility]
--- NOTE | 2020-12-03 20:44 | NUR ---
ASSUMPTION OF CARE. DONNIE IS VERY LOUD DUE TO [place]O [place], HE COMES OFF AGGRESSIVE AND ANGRY HE DOES NOT LIKE TO BE MOVED, LIGHT TO BE ON, OR TOUCHED AT THIS TIME. HE DID ALLOW FOR SMALL ASSESSMENT LONG I REMOVED THE SCD'S. HE ALSO CONTINUED TO YELL ABOUT THE FLASHING LIGHT ON THE BED. TURNED IT OFF. HE DOES NOT WANT TO BE REPOSITIONED, OR FOR ME TO EVEN PULL THE COVERS BACK FOR ASSESSMENT. HE DID AGREE TO TAKE HIS MEDICATIONS, AND THAT WAS PRETTY MUCH IT. RECTAL TUBE APPEARS TO BE STILL DRAINING, AND SO IS THE CATHETER. HE REFUSED VITALS. WILL KEEP TRYING T/O THE NIGHT. CALL LIGHT IS IN REACH.
--- NOTE | 2020-12-04 05:07 | NUR ---
SHIFT SUMMARY: AOX2-3, DOES HAVE SOME PERIODS OF FORGETFULNESS. HE TENDS TO BE VERY GRUMPY AT TIMES, YELLING AND NOT WANTING ANY ASSISTANCE OR TO BE TOUCHED. HE DID NOT ALLOW A FULL ASSESSMENT THIS SHIFT INCLUDING THE RECTAL TUBE TO BE ASSESSED, OR CATH CARE. HE REFUSED FIRST SET OF VITALS, REPOSITIONING, AND THIS AM LABS. THIS AM VITALS WERE WNL, AFEBRILE. HAND ON THE RIGHT IS STILL VERY SWOLLEN. HE DID REFUSE SCDS ON. DRESSINGS ARE INTACT, HE REFUSED FOR THEM TO BE CHANGED. SLEPT OFF AND ON, BUT DID NOT WANT TO BE DISTURBED. CALL LIGHT HAS REMAINED IN PLACE, WILL PASS ONTO DAYSHIFT.
--- NOTE | 2020-12-04 08:55 | NUR ---
REFUSES TO LET RN CHANGE DRESSINGS OR ADJUST RECTAL TUBE. WILL TRY AGAIN LATER. UNABLE TO LOOK UNDER CHEST OR LEFT ELBOW OR RT HAND MEPILEXS.
--- NOTE | 2020-12-04 18:31 | NUR ---
ALERT. ORIENTED X2-3. SOMETIMES COOPERATIVE. FOAM DRESSINGS PARTIALLY CAME OFF FROM USING GAITBELT AND WALKER TO GET PATIENT OOB.DRESSINGS TO RT ARM, RT C.W CHANGED. BRUISING TO ALL PLACES WITH INNER AND TOP OF HAND AND RT C.W BELOW NIPPLE RED BLOODY DRAINAGE. REFUSES TO HAVE RECTAL TUBE ADJUSTED. SMALL AMOUNT LIQUID DRAINAGE. REFUSES CARE OFTEN. DOES NOT LEAVE OXYGEN ON, BUT SATS ARE 90% OR ABOVE. IV LT F.A. PATENT. STS OFTEN HE IS LEAVING AND GOING HOME. STS HAS CAREGIVERS. CARE MANAGEMENT IS INVOLVED. WCTM
--- NOTE | 2020-12-04 20:20 | NUR ---
ASSUMPTION OF CARE. DONNIE IS IN A BETTER MOOD, HE IS NOT YELLING AND IS BEING MORE POLITE. HE IS IN A GOOD MOOD. DENIES ANY PAIN AT THIS TIME. DRESSINGS CHANGED TODAY. ONE ON RIGHT HAND LEAKING, APPLIED ANOTHER DRESSING, HAND STILL SWOLLEN, ALONG WITH LEGS. HE IS PAINFUL WHEN YOU MOVE HIS LEGS BUT IS DOING BETTER WITH TURNING. RECTAL TUBE IS STILL IN PLACE. VERY LITTLE DRAINAGE NOTED. VS WNL, AFEBRILE. CALL LIGHT IS IN REACH, HE IS USING APPROPRIATLY.
--- NOTE | 2020-12-05 06:10 | NUR ---
SHIFT SUMMARY: DONNIE WAS IN A BETTER MOOD LAST NIGHT, MORE COOPERATIVE THEN PREVIOUS NIGHT. HE ALLOWED FOR INTERVENTIONS TILL EARLY THIS AM WHEN HE SIAD HE DID NOT WANT TO BE CHANGED OR REPOSITIONED. HE DID ALLOW FOR VITALS, BUT REFUSED EVERYTHING ELSE. WAS ABLE TO ADJUST THE RECTAL TUBE, BUT HE GOT VERY ANGRY WITH ME FOR DOING IT WHEN WE WERE CHANGING HIM. RECTAL TUBE PUTTING OUT VERY LITTLE AND CAN COME OUT IF DOCTOR AGREES. STILL PAINFUL IN THE LEGS AND DOES NOT LIKE FOR US TO MOVE THEM. HE HAS NOT ASKED FOR PAIN MEDICATIONS OR WANTED THEM WHEN OFFERED. STILL REFUSING SCD'S. REFUSED THYROID PILL THIS AM. REDNESS IN GROIN, ANTIFUNGAL POWDER APPLIED ONCE BUT HE DOES NOT ALLOW FOR PROPER CLEAN UP FOR IT TO HEAL. WILL CONTINUE TO WORK WITH HIM. CALL LIGHT IS IN REACH.
[2020-12-05] MEDS ORDERED: DEXA6 PO (14:35)
--- NOTE | 2020-12-05 15:34 | NUR ---
DISCHARGE PT DISCHARGED TO [facility]. THIS RN GAVE REPORT TO RN AT [facility]. PT TRANSFERRED TO WHEELCHAIR VIA LIFT AND TRANSPORTED TO [facility]. PT'S BELONGINGS WITH PT. IV'S REMOVED WITHOUT DIFFICULTY.
== END 2020-12-05 15:03 | DRG 871 ==
LOC: ER 22:37 → ICUW 11-27 01:03 → MEDS 11-27 01:03 → ERHOLD 11-27 01:03 → ICUW 11-27 06:52 → MEDS 11-30 09:51
PROVIDERS: Emergency Medicine; Internal Medicine; ADMIT Family Medicine
PROC: XW033E5 Introduction of Remdesivir Anti-infective into Peripheral Vein, Percutaneous Approach, New Technology Group 5 (ICD-10-PCS; principal; 2020-11-28)
PROC: XW033E5 Introduction of Remdesivir Anti-infective into Peripheral Vein, Percutaneous Approach, New Technology Group 5 (ICD-10-PCS; 2020-11-29)
PROC: XW033E5 Introduction of Remdesivir Anti-infective into Peripheral Vein, Percutaneous Approach, New Technology Group 5 (ICD-10-PCS; 2020-11-30)
PROC: XW033E5 Introduction of Remdesivir Anti-infective into Peripheral Vein, Percutaneous Approach, New Technology Group 5 (ICD-10-PCS; 2020-12-01)
PROC: XW033E5 Introduction of Remdesivir Anti-infective into Peripheral Vein, Percutaneous Approach, New Technology Group 5 (ICD-10-PCS; 2020-12-02)
DX: A41.89 Other specified sepsis (principal); R65.21 Severe sepsis with septic shock; U07.1 COVID-19; J12.82 Pneumonia due to coronavirus disease 2019; J96.01 Acute respiratory failure with hypoxia; G92 Toxic encephalopathy; I21.A1 Myocardial infarction type 2; N17.9 Acute kidney failure, unspecified; M62.82 Rhabdomyolysis; N39.0 Urinary tract infection, site not specified; L03.113 Cellulitis of right upper limb; Z51.5 Encounter for palliative care; E86.0 Dehydration; D69.6 Thrombocytopenia, unspecified; F03.90 Unspecified dementia, unspecified severity, without behavioral disturbance, psychotic disturbance, mood disturbance, and anxiety; W18.30XA Fall on same level, unspecified, initial encounter; Y93.9 Activity, unspecified; Y92.002 Bathroom of unspecified non-institutional (private) residence as the place of occurrence of the external cause; S01.111A Laceration without foreign body of right eyelid and periocular area, initial encounter; S01.01XA Laceration without foreign body of scalp, initial encounter; M51.36 Other intervertebral disc degeneration, lumbar region; Z92.3 Personal history of irradiation; Z66 Do not resuscitate; B96.4 Proteus (mirabilis) (morganii) as the cause of diseases classified elsewhere; S47.1XXA Crushing injury of right shoulder and upper arm, initial encounter
CPT/HCPCS: 0241U; 36415; 51702; 70450; 71045; 73200; 73201; 80048; 80053; 81001; 82550; 82553; 83605; 84100; 84484; 85025; 87040; 87077; 87086; 87186; 87493; 93005; 93010; 94762; 96360-59; 97110; 97163; 97166; 97530; 99285-25; A9270; J0692; J0696; J1650; J2405; J3010; J7030; Q9967

== ENCOUNTER 2020-12-25 12:09 | Emergency (ER) | payer OTHER, MEDICARE ==
[~2020-12-25] VITALS: Ht 182.9 cm; Wt 89.8 kg
[~2020-12-25 12:09] MED LIST changes: +DEXA6 PO; +LEVSOD25 PO
[2020-12-25] MEDS ORDERED: MELA3 PO (12:31)
[2020-12-25] MEDS ORDERED: Vitamin D2000 UNIT PO (12:32)
[2020-12-25 14:03] LABS: BASOPHILS ABSOLUTE AUTO 0.05 K/mm3 (0.00-0.23); BASOPHILS PERCENT AUTO 1 % (0-2); EOSINOPHILS ABSOLUTE AUTO 0.02 K/mm3 (0.00-0.68); EOSINOPHILS PERCENT AUTO 0 % (0-6); Hematocrit 44.5 % (37.0-53.0); Hemoglobin 14.9 g/dL (13.5-17.5); IMMATURE GRAN PERCENT AUTO 1 % (0-1); LYMPHOCYTES ABSOLUTE AUTO 0.82 K/mm3 (0.84-5.20); LYMPHOCYTES PERCENT AUTO 8 % (21-46); MONOCYTES ABSOLUTE AUTO 0.92 K/mm3 (0.16-1.47); MONOCYTES PERCENT AUTO 9 % (4-13); Mean Corpuscular HGB 31.2 pg (26.0-34.0); Mean Corpuscular HGB Conc 33.5 g/dL (31.5-36.5); Mean Corpuscular Volume 93 fL (80-100); Mean Platelet Volume 9.8 fL (9.1-12.4); NEUTROPHILS ABSOLUTE AUTO 8.11 K/mm3 (1.96-9.15); NEUTROPHILS PERCENT AUTO 81 % (41-73); Platelet Count 257 K/mm3 (150-400); RDW Coefficient Variation 13.3 % (11.7-14.2); Red Blood Cell Count 4.77 M/mm3 (4.30-5.90); White Blood Cell Count 10.02 K/mm3 (4.00-11.30)
[2020-12-25 14:20] LABS: Alanine Aminotransfer (ALT/SGP 21 U/L (12-78); Albumin, Blood 2.2 g/dL (3.4-5.0); Albumin/Globulin Ratio 0.4 (0.8-1.8); Alk Phos 107 U/L (50-136); Anion Gap 7 mmol/L (6-16); Aspartate Aminotrans (AST/SGOT 18 U/L (12-37); Bilirubin, Total 0.9 mg/dL (0.1-1.0); Blood Urea Nitrogen 21 mg/dL (8-24); Bun/Creatinine Ratio 26.4 (12.0-20.0); CO2, Blood 24 mmol/L (21-32); Calcium, Blood 8.5 mg/dL (8.5-10.1); Chloride, Blood 108 mmol/L (98-108); Globulin, Blood 5.4 g/dL (2.2-4.0); Glomerular Filtration Rate >60 (60-); Glucose, Blood 147 mg/dL (70-99); Magnesium, Blood 1.9 mg/dL (1.6-2.4); Phosphorus, Blood 3.1 mg/dL (2.5-4.9); Potassium, Blood 4.5 mmol/L (3.5-5.5); Sodium, Blood 139 mmol/L (136-145); Total Protein, Blood 7.6 g/dL (6.4-8.2)
[2020-12-25] MEDS ORDERED: CLIN300 PO (17:08)
== END 2020-12-25 17:25 | disposition home or self-care (01) ==
LOC: ER 12:09
PROVIDERS: Physician Assistant
DX: I96 Gangrene, not elsewhere classified (principal); S61.401A Unspecified open wound of right hand, initial encounter; S21.109A Unspecified open wound of unspecified front wall of thorax without penetration into thoracic cavity, initial encounter; Z88.7 Allergy status to serum and vaccine; Z88.0 Allergy status to penicillin; Z88.6 Allergy status to analgesic agent; Z88.5 Allergy status to narcotic agent; Z79.899 Other long term (current) drug therapy; Z86.718 Personal history of other venous thrombosis and embolism
CPT/HCPCS: 73110; 80053; 83605; 83735; 84100; 85025; 87040; 87070; 87075; 87077; 87186; 87205; 93005; 93010; 96365; 99284-25; J7030

== ENCOUNTER 2020-12-28 10:54 | Emergency (ER) | payer OTHER, MEDICARE ==
[~2020-12-28] VITALS: Ht 182.9 cm; Wt 89.8 kg
[~2020-12-28 10:54] MED LIST changes: +CLIN300 PO; +MELA3 PO; +Vitamin D2000 UNIT PO
== END 2020-12-28 12:31 | disposition short-term general hospital (02) ==
LOC: ER 10:54
DX: S61.501A Unspecified open wound of right wrist, initial encounter (principal); F03.90 Unspecified dementia, unspecified severity, without behavioral disturbance, psychotic disturbance, mood disturbance, and anxiety; Z79.899 Other long term (current) drug therapy; Z88.7 Allergy status to serum and vaccine; Z88.0 Allergy status to penicillin; Z88.5 Allergy status to narcotic agent; X58.XXXA Exposure to other specified factors, initial encounter
CPT/HCPCS: 99284